=== PATIENT | female | born 1970 | race Hispanic/Latino ===

== ENCOUNTER 2018-03-09 00:43 | Emergency (ER) | payer BC ==
[~2018-03-09] VITALS: Ht 162.6 cm; Wt 59.0 kg
[2018-03-09] MEDS ORDERED: ONDANSETRON HCL INJ 2 MG/ML VIAL IV STA (01:02)
[2018-03-09] MEDS ORDERED: MORPHINE SULFATE 2 MG/ML SYR IV STA (01:02)
[2018-03-09] MEDS ORDERED: SODIUM CHLORIDE 0.9% 1000ML 1,000 ML IV STA (01:02)
[2018-03-09 01:49] LABS: BASOPHILS % 0.3 % (0.0-1.0); EOSINOPHILS # (AUTO) 0.2 (0.0-0.4); EOSINOPHILS % 1.4 % (0.0-6.0); HEMOGLOBIN 14.2 g/dL (12.0-16.0); LYMPHOCYTES # (AUTO) 1.2 (1.0-3.2); LYMPHOCYTES % 9.2 % (18.0-39.1); MEAN CORPUSCULAR HEMOGLOBIN 31.3 pg (28-32); MEAN CORPUSCULAR HGB CONC 34.6 g/dL (31-35); MEAN CORPUSCULAR VOLUME 90.5 fL (81-99); MONOCYTES # (AUTO) 0.9 (0.2-0.8); MONOCYTES % 6.9 % (4.4-11.3); NEUTROPHILS # (AUTO) 10.6 (2.1-6.9); NEUTROPHILS % 81.9 % (38.7-80.0); PLATELET COUNT 217 x10e3/uL (140-360); RED BLOOD COUNT 4.53 x10e6/uL (3.6-5.1); RED CELL DISTRIBUTION WIDTH 12.8 % (11.7-14.4)
[2018-03-09 02:00] LABS: COLOR,URINE YELLOW (YELLOW)
[2018-03-09 02:01] LABS: BILIRUBIN,URINE NEGATIVE (NEGATIVE); CLARITY,URINE CLEAR (CLEAR); KETONES,URINE NEGATIVE (NEGATIVE); LEUKOCYTE ESTERASE ,URINE NEGATIVE (NEGATIVE); NITRITE,URINE POSITIVE (NEGATIVE); PROTEIN,URINE DIPSTICK NEGATIVE (NEGATIVE); URINE UROBILINOGEN 0.2 mg/dL (0.2 - 1)
[2018-03-09 02:07] LABS: BACTERIA,URINE MODERATE /HPF; EPITHELIAL CELLS,URINE RARE /LPF; WBC,URINE (MAN) 0-5 /HPF (0-5)
[2018-03-09 02:13] LABS: ALANINE AMINOTRANSFERASE 35 IU/L (0-55); ALBUMIN 3.8 g/dL (3.5-5.0); ALBUMIN/GLOBULIN RATIO 1.1 (0.8-2.0); ALKALINE PHOSPHATASE 60 IU/L (40-150); ANION GAP 14.9 mmol/L (8-16); BLOOD UREA NITROGEN 11 mg/dL (7-26); BUN/CREATININE RATIO 16 (6-25); CALCIUM 9.8 mg/dL (8.4-10.2); CARBON DIOXIDE 25 mmol/L (22-29); CHLORIDE 103 mmol/L (98-107); CREATININE, SERUM 0.67 mg/dL (0.57-1.11); EST GLOMERULAR FILTRATION RATE > 60 ML/MIN (60-); GLUCOSE 123 mg/dL (74-118); POTASSIUM 3.9 mmol/L (3.5-5.1); SODIUM 139 mmol/L (136-145)
[2018-03-09] MEDS ORDERED: IOPAMIDOL 370 MG/ML 200 ML INFUS..BTL INJ ONE (02:29)
[2018-03-09] MEDS ORDERED: SODIUM CHLORIDE 0.9% 50ML 50 ML ONE (02:29)
--- NOTE | 2018-03-09 03:44 | Diagnostic Imaging Report ---
EXAM: CT ABDOMEN/PELVIS W DATE: 03/09/2018 1:02 AM INDICATION: \S\5D S/P LAP HYST AND BLADDER SUSP 5 days ago, LOWER ABD PAIN \S\[id number] \S\[id number] COMPARISON: None TECHNIQUE: The abdomen and pelvis were scanned using a multidetector helical scanner. Coronal and sagittal reformations were obtained. Routine protocol with venous phase and delayed images was performed. IV Contrast: ml Isovue 300/370 FINDINGS: LOWER THORAX: No consolidations LIVER/BILIARY: No masses. No ductal dilatation. GALLBLADDER: Unremarkable SPLEEN: Unremarkable PANCREAS: Unremarkable ADRENALS: No nodules KIDNEYS: Symmetric enhancement and excretion. No masses. No hydronephrosis or contrast extravasation on delayed images. GI TRACT: No wall thickening or obstruction. Scattered diverticula. The appendix is not seen. VESSELS: Unremarkable PERITONEUM/RETROPERITONEUM: Mild pelvic stranding and trace fluid. Mild volume pneumoperitoneum, presumably postoperative. LYMPH NODES: No lymphadenopathy REPRODUCTIVE ORGANS/BLADDER: Postsurgical changes status post hysterectomy and reported bladder suspension. The bladder is decompressed with a Lloyd catheter. 1.9 cm right ovarian cyst/follicle. SOFT TISSUES: Mild soft tissue gas is seen within the anterior abdominal wall, right greater than left. No discrete fluid collection. BONES: Degenerative changes, primarily at L4-5. IMPRESSION: 1. Postsurgical changes status post recent hysterectomy and bladder suspension with mild volume pneumoperitoneum. No drainable fluid collections. 2. No hydronephrosis or evidence of ureteral injury. Signed by: Dr Reena Sibley MD on 03/09/2018 3:41 AM
== END 2018-03-09 04:10 | disposition home or self-care (01) ==
LOC: ER 00:46
DX: R10.30 Lower abdominal pain, unspecified (principal); R33.9 Retention of urine, unspecified; E78.5 Hyperlipidemia, unspecified
CPT/HCPCS: 36415; 51702; 74177; 80053; 81001; 84702; 85025; 87086; 87186; 99284; J2270; J2405; J7030; Q9967; 51700